=== PATIENT | female | born 1980 | race Caucasian/White ===

== ENCOUNTER 2018-01-20 23:21 | Emergency (ER) | payer OTHER, SELFPAY ==
[2018-01-20 23:23] VITALS: BP 177/113; PULSE 79; RESP 15; TEMP 36.5; O2SAT 93; BMI 44.6
[2018-01-20 23:32] VITALS: BP 185/94; PULSE 73; RESP 16; O2SAT 96
--- OUTSIDE RECORDS SUMMARY | 2018-01-21 00:02 | XMS RPT_ITS ---
:1980 Author Organization [place] Care Team Providers Name Role Phone Chad Merlos Admitting Unavailable Chad Merlos Attending Unavailable Umm Day Primary Care Unavailable Jay Chance Attending Unavailable NANCIE WALLER Primary Care Unavailable UMM DAY MD Primary Care Unavailable UMM DAY MD Attending Unavailable ZI STEVENSON, UMM Primary Care Unavailable PROBLEMS PROBLEMS No Problem Records FoundPROCEDURES PROCEDURES No Procedure Records FoundRESULTS RESULTS PHONE MSG Observed: 07/04/2017 Status: F Source: [facility] 8:38 AM [facility] REPOSITORY Entered by UMM DAY MD on July 04, 2017 08:38:18 EST From: UMM DAY MD To: [facility]/pharmacy #[id number] Sent: 07/04/2017 08:38:18 ESTSubject: Medication Management Submitted: Complete:metoprolol (Metoprolol Succinate ER 50 mg oral tablet, extended release) Signed by UMM DAY MD 07/04/2017 08:38:00 Approved metoprolol ( METOPROLOL SUCC ER 50 MG TAB) TAKE 1 TABLET BY MOUTH EVERY EVENING AT BEDTIMEQty: 90 TB Days Supply: 30 Refills: 0 Substitutions Allowed Route To Pharmacy - [facility]/pharmacy #[id number] From: [facility]/pharmacy #[id number] July 04, 2017 1:30:25 AM ESTSubject: Medication ManagementDue: July 05, 2017 1:30:25 AM EST On Hold Pending Signature Drug: metoprolol (Toprol-XL 50 mg oral tablet, extended release) TAKE 1 TABLET BY MOUTH EVERY EVENING AT BEDTIMEQuantity: 90 TB Days Supply: 30 Refills: 0Substitutions AllowedNotes from Pharmacy: Dispensed Drug: metoprolol ( Metoprolol Succinate ER 50 mg oral tablet, extended release) TAKE 1 TABLET BY MOUTH EVERY EVENING AT BEDTIMEQuantity: 90 TB Days Supply: 30 Refills: 0Substitutions AllowedNotes from Pharmacy: ------ [place] [facility] [place]ed: 05/23/2017 Status: F Source: [facility] 11:09 AM [facility] REPOSITORY Entered by UMM DAY MD on May 23, 2017 11:09:46 EST From: UMM DAY MD To: [facility]/pharmacy #[id number] Sent: 05/23/2017 11:09:46 ESTSubject: Medication Management Submitted: Complete:levothyroxine (levothyroxine 75 mcg (0.075 mg) oral tablet) Signed by UMM DAY MD 05/23/2017 11:09:00 Approved levothyroxine ( LEVOTHYROXINE 75 MCG TABLET) TAKE 1 TABLET BY MOUTH EVERY DAYQty: 90 TB Days Supply: 90 Refills: 0 Substitutions Allowed Route To Pharmacy - [facility]/ pharmacy #[id number] Patient matched by UMM DAY MD on 05/23/2017 11:09:30 EST From: [facility]/pharmacy #[id number]: Lila DAY MDt: May 23, 2017 11:00:43 AM ESTSubject: Medication ManagementDue: May 24, 2017 11:00:43 AM EST On Hold Pending Signature Drug: levothyroxine (levothyroxine 75 mcg (0.075 mg) oral tablet) TAKE 1 TABLET BY MOUTH EVERY DAYQuantity: 90 TB Days Supply: 90 Refills: 0Substitutions AllowedNotes from Pharmacy: Dispensed Drug: levothyroxine (levothyroxine 75 mcg (0.075 mg) oral tablet) TAKE 1 TABLET BY MOUTH EVERY DAYQuantity: 90 TB Days Supply: 90 Refills: 0Substitutions AllowedNotes from Pharmacy: HIV-1/2 AG/AB Collected: 04/04/2017 Status: F Source: [facility] 3:18 PM [facility] REPOSITORY TYPE CODE TESTS RESULT OUT OF RANGE REFERENCE UNITS LAB 209918142(L Normal Non-Reactive OINC) HIV-1/2 Non-Reactive Ag/Ab Performed By: #### [id number] ####[place] [address] HEP BS AB Collected: 04/04/2017 Status: F Source: [facility] 3:18 PM [facility] REPOSITORY TYPE CODE TESTS RESULT OUT OF RANGE REFERENCE UNITS LAB [id number](LO Normal INC) Hep Reactive Bs Ab Result Comment: Non Reactive: Inconsistent with immunity, less than 10 mIU/mL Reactive: Consistent with immunity, greater than 9.9 mIU/ mLPerformed At: Lab[address] [id number] Vincent PhD Ph:[phone] Performed By: #### [id number] ####TASHA Send Outs [address] [place] [id number] HEP C AB Collected: 04/04/2017 Status: F Source: [facility] 3:18 PM [facility] REPOSITORY TYPE CODE TESTS RESULT OUT OF RANGE REFERENCE UNITS LAB [id number](LO Normal 0.0-0.9 s/co ratio INC) Hep C <0.1 Ab Result Comment: Negative: < 0.8 Indeterminate: 0.8 - 0.9 Positive: > 0.9 The CDC recommends that a positive HCV antibody result be followed up with a HCV Nucleic Acid Amplification test (348192) .Performed At: [facility] [address] [place], [place] [id number] Vincent PhD Ph:[phone] Performed By: #### [id number] ####TASHA Send Outs [place] [id number] PHONE MSG Observed: 02/01/2017 Status: F Source: [facility] 9:49 AM [facility] REPOSITORY Entered by MYRIAM ZHOU on February 01, 2017 09: 49:26 EDT From: MYRIAM ZHOU To: [facility] #[id number] Sent: 02/01/2017 09:49:26 EDTSubject: Medication Management Documented Complete:metoprolol Signed by MYRIAM ZHOU 02/01/2017 09:49:00* * Approved metoprolol (METOPROLOL SUCC ER 50 MG TAB) TAKE 1 TABLET BY MOUTH EVERY EVENING AT BEDTIMEQty: 90 TB Days Supply: 90 Refills: 0 Substitutions Allowed Route To Pharmacy - [facility] #[id number] Signed by MYRIAM ZHOU Patient matched by MYRIAM ZHOU on 02/01/2017 09: 47:41 EDT From: [facility]/pharmacy #[id number]: Lila DAY MDt: February 01, 2017 1:13:15 AM EDTSubject: Medication ManagementDue: February 02, 2017 1:13:15 AM EDT On Hold Pending Signature Drug: metoprolol (Toprol-XL 50 mg oral tablet, extended release) TAKE 1 TABLET BY MOUTH EVERY EVENING AT BEDTIMEQuantity: 90 TB Days Supply: 90 Refills: 0Substitutions AllowedNotes from Pharmacy: Dispensed Drug: metoprolol (Metoprolol Succinate ER 50 mg oral tablet, extended release) TAKE 1 TABLET BY MOUTH EVERY EVENING AT BEDTIMEQuantity: 90 TB Days Supply: 90 Refills: 0Substitutions AllowedNotes from Pharmacy: PHONE MSG Observed: 11/15/2016 Status: F Source: [facility] 11:28 AM [facility] REPOSITORY Entered by MYRIAM ZHOU on November 15, 2016 11:28 :29 EDT From: MYRIAM ZHOU To: [facility]/pharmacy #[id number] Sent: 11/15/2016 11:28:29 EDT !Subject: Medication Management Documented Complete:FLUoxetine (PROzac) Signed by MYRIAM ZHOU 11/15/2016 11:28:29 Approved FLUoxetine (FLUOXETINE HCL 20 MG CAPSULE) TAKE 1 CAPSULE EVERY DAYQty: 90 caps Days Supply: 90 Refills: 2 Substitutions Allowed Route To Pharmacy - [facility]/pharmacy #[id number] Signed by MYRIAM ZHOU Patient matched by MYRIAM ZHOU on 11/15/2016 11:28:11 EDT From: [facility]/pharmacy #[id number]: ZI STEVENSON, MARYSent: November 13, 2016 11:13:59 AM EDTSubject: Medication ManagementDue: November 11:13:59 AM EDT On Hold Pending Signature Drug: FLUoxetine (PROzac 20 mg oral capsule) TAKE 1 CAPSULE EVERY DAYQuantity: 90 caps Days Supply: 90 Refills: 2Substitutions AllowedNotes from Pharmacy: Dispensed Drug: FLUoxetine (FLUoxetine 20 mg oral capsule) TAKE 1 CAPSULE EVERY DAYQuantity: 90 caps Days Supply: 90 Refills: 2Substitutions AllowedNotes from Pharmacy: ALLERGIES ALLERGIES DATE TYPE / CODE NAME / CODE REACTION SEVERITY SOURCE 01/20/2018 Drug oxycodone/F0 Shortness of Unknown [facility] Allergy/4160 [id number](RXN [facility] [address]88(SNOMED ORM) Repository CT) 01/20/2018 Drug acetaminophe Shortness of Unknown [facility] Allergy/4160 n/[id number] [facility] [address](SNOMED (RXNORM) Repository CT) ENCOUNTERS ENCOUNTERS ADMIT/DISCHARGE ACCOUNT NUMBER ADMITTING ENCOUNTER LOCATION SOURCE CLASS 01/20/2018 [id number] [facility] ding:ED Repository 04/04/2017/04/04/20 [id number] Chad Merlos [facility] ding:[facility] Repository 10/05/2016/10/06/19 [id number] [facility] [place] [address] ing:[facility] General oom: [address] Repository 12/31/2015 [id number] [facility] ing:[facility] Repository PAYERS PAYERS ENCOUNTER GUARANTOR PAYER SUBSCRIBER SOURCE 01/20/2018 KURT Fitzgerald [place] [id number] CR Insurance:Alf CLARKB: [address], Number: [id number] [address]Wgi: [id number] Repository Date:[id number] [address] () [id number] IDALMIS AGUILAR [id number]: 01/20/2018 Secondary NOT GIVENUNK [place] Insurance:SELF PAY [facility] Number: Effective Repository Date:2018-01-20 04/04/2017 KURT M [facility] [id number] Number: Effective [id number] [facility] Date:2017-04-[address] [facility] [address] Repository [facility] [id number] [place] [address] [id number]: Name:[place] [id number]: [id number] () [place], [place] ()Tel: [phone]: () [phone]
[2018-01-21] MEDS: 0.9% Normal Saline 1,000 ML 999 ML IV (00:11)
[2018-01-21] MEDS: Metoclopramide 10 MG/2 ML Vial IV (00:12)
[2018-01-21] MEDS: Ketorolac 30 MG/ML Syringe IV (00:12)
[2018-01-21] MEDS: DiphenhydrAMINE 50 MG/ML Syringe 25 MG IV (00:12)
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
[2018-01-21 01:25] VITALS: PULSE 78; RESP 19; O2SAT 100
[2018-01-21 01:27] VITALS: BP 158/78; PULSE 62; RESP 12; O2SAT 99
--- NOTE | 2018-01-21 23:58 | CT_ITS ---
STUDY: CT BRAIN WITHOUT CONTRAST REASON FOR EXAM: Female, 37 years old. Headache, pain behind right eye, numbness, tingling to right side of face since 5:00 PM. Elevated blood pressure. RADIATION DOSAGE (If Supplied By Facility): CTDIvol = ( 44.99 ) mGy, DLP = ( 796.11 ) mGycm TECHNIQUE: Transaxial CT imaging of the brain was performed without administration of intravenous contrast material. Multiplanar coronal and sagittal images were reformatted. Individualized dose optimization techniques were used for this CT. COMPARISON: None. FINDINGS: Normal soft tissue structures. 1 cm left occipital subcutaneous ovoid mass likely a sebaceous cyst. Normal calvarium. Normal size ventricles and extra-axial spaces for the patient's age. Normal white matter tracts of the cerebral hemispheres. Normal basal ganglia and thalami. Normal brainstem. Normal cerebellum. There is no intracranial hemorrhage. There are no findings of an acute ischemic infarction. Normal visualized paranasal sinuses. The bilateral mastoid air cells are clear. CT/Brain/Head without Contrast IMPRESSION: There is no acute intracranial pathology. Electronically Signed: Eunice Pool MD at 0:41 EDT , Service support ,
== END 2018-01-21 01:26 | disposition home or self-care (01) ==
PROVIDERS: Emergency Provider Emergency Medicine; Family Provider Family Medicine; PCP Family Medicine
DX: R51 Headache (principal); Z79.899 Other long term (current) drug therapy
CPT/HCPCS: 70450; 96361; 96374; 96375; 99283; J7030; A4216